=== PATIENT | male | born 1935 | race Caucasian/White ===

== ENCOUNTER 2017-01-29 19:15 | Emergency (ER) | payer MEDICARE, BC ==
[2017-01-29 19:25] VITALS: RESP 18
[2017-01-29] MEDS ORDERED: SODIUM CHLORIDE 0.9% 1,000 ML IV STA (20:00)
[2017-01-29] MEDS ORDERED: ACETAMINOPHEN TAB 500 MG TAB PO STA (20:00)
[2017-01-29] MEDS ORDERED: SODIUM CHLORIDE 0.9% 500 ML IV STA (20:00)
--- NOTE | 2017-01-29 20:03 | ED ---
General Adult HPI - General Source: patient Mode of arrival: ambulatory Limitations: no limitations <Francis Panda - Last Filed: 01/29/17 21:55> <Andrew Roque - Last Filed: 01/29/17 22:50> - General Chief complaint: Arrhythmia/Palpitations Stated complaint: Rapid heart beat Time Seen by Provider: 01/29/17 19:40 - History of Present Illness Initial comments: This 82-year-old white male presents stating that his heart rate has been running approximately 50 for the past couple of days. It then jumped up to a heart rate of 90 this afternoon. This made him somewhat alarmed. He also has had the chills over the past day or 2 but did not have any actual fever. He denies any urinary symptoms. He denies any chest pain, shortness breath, or cough. He states that he has been seeing Dr. Joy from cardiology for the last extremity 8 years for heart arrhythmias. He states that he's had multiple Holter monitors. His heart rate sometimes be bradycardic and sometimes tachycardic. He is unsure of the exact condition that he has. He denies any other complaints or modifying factors. He is essentially asymptomatic at this time. (Francis Panda) - Related Data Home Medications Medication Instructions Recorded Confirmed Aspirin EC [Ecotrin Low Dose] 81 mg PO DAILY 01/29/17 01/29/17 Atorvastatin [Lipitor] 10 mg PO HS 01/29/17 01/29/17 Dorzolamide HCl [Trusopt 2%] 1 drop BOTH EYES BID 01/29/17 01/29/17 Finasteride [Proscar] 5 mg PO QAM 01/29/17 01/29/17 Previous Rx's Medication Instructions Recorded Ciprofloxacin HCl [Cipro] 500 mg PO Q12HR #28 tablet 01/29/17 Allergies Allergy/AdvReac Type Severity Reaction Status Date / Time No Known Allergies Allergy Verified 01/29/17 19:24 Review of Systems ROS Other: All systems not noted in ROS Statement are negative. <Francis Panda - Last Filed: 01/29/17 21:55> ROS Other: All systems not noted in ROS Statement are negative. <Andrew Roque - Last Filed: 01/29/17 22:50> ROS Statement: Those systems with pertinent positive or pertinent negative responses have been documented in the HPI. Past Medical History Additional Past Medical History / Comment(s): aortic anuerysm. enlarged prostate. diverticulitis. glaucoma History of Any Multi-Drug Resistant Organisms: None Reported Past Surgical History: Appendectomy Past Psychological History: No Psychological Hx Reported Smoking Status: Former smoker Past Alcohol Use History: None Reported Past Drug Use History: None Reported <Francis Panda - Last Filed: 01/29/17 21:55> General Exam Limitations: no limitations <Francis Panda - Last Filed: 01/29/17 21:55> <Andrew Roque - Last Filed: 01/29/17 22:50> - General Exam Comments Initial Comments: GENERAL: The patient is well nourished and well hydrated. Patient does have a fever. VITAL SIGNS: Heart rate, blood pressure, respiratory rate reviewed as recorded in nurse's notes. EYES: Pupils are round and reactive. Extraocular movements are intact. No conjunctival / lid redness or swelling. ENT: No external evidence of injury, swelling, or ecchymosis. Airway is patent. Throat is clear. NECK: Nontender. No swelling or evidence of injury. No subcutaneous emphysema. Trachea is midline. No thyroid mass. HEART: Regular rate and rhythm. Good peripheral pulses. LUNGS/CHEST: Breath sounds clear and equal bilaterally. No rales, rhonchi, or wheezes. No ecchymosis, subcutaneous emphysema, or tenderness. ABDOMEN: Abdomen soft without tenderness. No palpable masses or organomegaly. No peritoneal signs. No abdominal wall swelling or ecchymosis. EXTREMITIES: No extremity tenderness. Normal muscle tone and function. No thoracolumbar tenderness. NEUROLOGIC: Sensation is grossly intact. Cranial nerve exam reveals face is symmetrical, tongue is midline, speech is clear. SKIN: No abrasions or ecchymosis is noted. No induration or masses noted. PSYCHIATRIC: Alert and oriented. Appropriate behavior and judgment. (Francis Panda) Medical Decision Making - Lab Data Result diagrams: 01/29/17 19:35 01/29/17 19:35 <Francis Panda - Last Filed: 01/29/17 21:55> - Lab Data Result diagrams: 01/29/17 19:35 01/29/17 19:35 <Andrew Roque - Last Filed: 01/29/17 22:50> - Medical Decision Making The patient was seen and examined. All diagnostics were reviewed. The EKG shows a normal sinus rhythm at a rate of 79. There is no acute ST-T wave changes noted. Patient will PAC is noted. The IL interval is 184, QRS duration is 82, and the QTc interval is 431. Further care will be passed off to oncoming physician. (Francis Panda) - Lab Data Lab Results 01/29/17 01/29/17 01/29/17 Range/Units 19:35 19:35 19:35 WBC 12.0 H (3.8-10.6) k/uL RBC 4.73 (4.30-5.90) m/uL Hgb 15.0 (13.0-17.5) gm/dL Hct 44.5 (39.0-53.0) % MCV 94.1 (80.0-100.0) fL MCH 31.8 (25.0-35.0) pg MCHC 33.8 (31.0-37.0) g/dL RDW 13.3 (11.5-15.5) % Plt Count 162 (150-450) k/uL Neutrophils % 81 % Lymphocytes % 10 % Monocytes % 7 % Eosinophils % 1 % Basophils % 0 % Neutrophils # 9.7 H (1.3-7.7) k/uL Lymphocytes # 1.2 (1.0-4.8) k/uL Monocytes # 0.8 (0-1.0) k/uL Eosinophils # 0.1 (0-0.7) k/uL Basophils # 0.0 (0-0.2) k/uL PT (9.0-12.0) sec INR (<1.2) APTT (22.0-30.0) sec Sodium 141 (137-145) mmol/L Potassium 4.0 (3.5-5.1) mmol/L Chloride 108 H (98-107) mmol/L Carbon Dioxide 24 (22-30) mmol/L Anion Gap 9 mmol/L BUN 16 (9-20) mg/dL Creatinine 0.96 (0.66-1.25) mg/dL Est GFR (MDRD) Af Amer >60 (>60 ml/min/1.73 sqM) Est GFR (MDRD) Non-Af >60 (>60 ml/min/1.73 sqM) Glucose 96 (74-99) mg/dL Plasma Lactic Acid Jarrett (0.7-2.0) mmol/L Calcium 9.2 (8.4-10.2) mg/dL Total Bilirubin 0.8 (0.2-1.3) mg/dL AST 25 (17-59) U/L ALT 37 (21-72) U/L Alkaline Phosphatase 58 (38-126) U/L Total Creatine Kinase 56 (55-170) U/L CK-MB (CK-2) 0.8 (0.0-2.4) ng/mL CK-MB (CK-2) Rel Index 1.4 Troponin I <0.012 (0.000-0.034) ng/mL Total Protein 6.6 (6.3-8.2) g/dL Albumin 4.0 (3.5-5.0) g/dL Urine Color Urine Appearance (Clear) Urine pH (5.0-8.0) Ur Specific [place] (1.001-1.035) Urine Protein (Negative) Urine Glucose (UA) (Negative) Urine Ketones (Negative) Urine Blood (Negative) Urine Nitrite (Negative) Urine Bilirubin (Negative) Urine Urobilinogen (<2.0) mg/dL Ur Leukocyte Esterase (Negative) Urine RBC (0-5) /hpf Urine WBC (0-5) /hpf Ur Squamous Epith Cells (0-4) /hpf Urine Bacteria (None) /hpf Urine Mucus (None) /hpf 01/29/17 01/29/17 01/29/17 Range/Units 19:35 21:35 21:36 WBC (3.8-10.6) k/uL RBC (4.30-5.90) m/uL Hgb (13.0-17.5) gm/dL Hct (39.0-53.0) % MCV (80.0-100.0) fL MCH (25.0-35.0) pg MCHC (31.0-37.0) g/dL RDW (11.5-15.5) % Plt Count (150-450) k/uL Neutrophils % % Lymphocytes % % Monocytes % % Eosinophils % % Basophils % % Neutrophils # (1.3-7.7) k/uL Lymphocytes # (1.0-4.8) k/uL Monocytes # (0-1.0) k/uL Eosinophils # (0-0.7) k/uL Basophils # (0-0.2) k/uL PT 10.8 (9.0-12.0) sec INR 1.1 (<1.2) APTT 21.4 L (22.0-30.0) sec Sodium (137-145) mmol/L Potassium (3.5-5.1) mmol/L Chloride (98-107) mmol/L Carbon Dioxide (22-30) mmol/L Anion Gap mmol/L BUN (9-20) mg/dL Creatinine (0.66-1.25) mg/dL Est GFR (MDRD) Af Amer (>60 ml/min/1.73 sqM) Est GFR (MDRD) Non-Af (>60 ml/min/1.73 sqM) Glucose (74-99) mg/dL Plasma Lactic Acid Jarrett 1.4 (0.7-2.0) mmol/L Calcium (8.4-10.2) mg/dL Total Bilirubin (0.2-1.3) mg/dL AST (17-59) U/L ALT (21-72) U/L Alkaline Phosphatase (38-126) U/L Total Creatine Kinase (55-170) U/L CK-MB (CK-2) (0.0-2.4) ng/mL CK-MB (CK-2) Rel Index Troponin I (0.000-0.034) ng/mL Total Protein (6.3-8.2) g/dL Albumin (3.5-5.0) g/dL Urine Color Yellow Urine Appearance Cloudy (Clear) Urine pH 6.0 (5.0-8.0) Ur Specific [place] 1.015 (1.001-1.035) Urine Protein Negative (Negative) Urine Glucose (UA) Negative (Negative) Urine Ketones Negative (Negative) Urine Blood Trace H (Negative) Urine Nitrite Positive (Negative) Urine Bilirubin Negative (Negative) Urine Urobilinogen <2.0 (<2.0) mg/dL Ur Leukocyte Esterase Large H (Negative) Urine RBC 3 (0-5) /hpf Urine WBC 62 H (0-5) /hpf Ur Squamous Epith Cells <1 (0-4) /hpf Urine Bacteria Rare H (None) /hpf Urine Mucus Rare H (None) /hpf Disposition <Francis Panda - Last Filed: 01/29/17 21:55> <Andrew Roque - Last Filed: 01/29/17 22:50> Clinical Impression: Urinary tract infection Disposition: HOME SELF-CARE Condition: Fair Instructions: Urinary Tract Infection in Men (ED) Prescriptions: Ciprofloxacin HCl [Cipro] 500 mg PO Q12HR #28 tablet Referrals: Jacob Thakkar MD [Primary Care Provider] - 1-2 days
[2017-01-29 20:32] LABS: Basophils % (A) 0 %; CHCM 33.1; Eosinophils # (A) 0.1 k/uL (0-0.7); Eosinophils % (A) 1 %; HCT 44.5 % (39.0-53.0); HDW 2.25; Luc # (Auto) 0.18; Luc % (Auto) 2; Lymphocytes # (A) 1.2 k/uL (1.0-4.8); Lymphocytes % (A) 10 %; MCH 31.8 pg (25.0-35.0); MCHC 33.8 g/dL (31.0-37.0); MCV 94.1 fL (80.0-100.0); Mean Platelet Volume 7.6; Monocytes # (A) 0.8 k/uL (0-1.0); Monocytes % (A) 7 %; Neutrophils # (A) 9.7 k/uL (1.3-7.7); Neutrophils % (A) 81 %; RBC 4.73 m/uL (4.30-5.90); RDW 13.3 % (11.5-15.5); WBC (Perox) 12.49
[2017-01-29] MEDS ORDERED: ACETAMINOPHEN ORAL SUSP 160 MG/5 ML CUP PO ONE (20:33)
[2017-01-29 20:35] LABS: ALT 37 U/L (21-72); AST 25 U/L (17-59); Alkaline Phosphatase 58 U/L (38-126); Anion Gap 9 mmol/L; Blood Urea Nitrogen 16 mg/dL (9-20); Calcium 9.2 mg/dL (8.4-10.2); Carbon Dioxide 24 mmol/L (22-30); Chloride 108 mmol/L (98-107); Glucose 96 mg/dL (74-99); Non-African American GFR(MDRD) >60 (>60 ml/min/1.73 sqM); Sodium 141 mmol/L (137-145); Total Bilirubin 0.8 mg/dL (0.2-1.3); Total Protein 6.6 g/dL (6.3-8.2)
[2017-01-29 20:40] LABS: INR 1.1 (<1.2); Partial Thromboplastin Time 21.4 sec (22.0-30.0); Prothrombin Time 10.8 sec (9.0-12.0)
[2017-01-29 20:41] LABS: Creatine Kinase 56 U/L (55-170)
--- NOTE | 2017-01-29 20:47 | XR ---
EXAMINATION TYPE: XR chest 2V DATE OF EXAM: 01/29/2017 COMPARISON: NONE HISTORY: Weakness TECHNIQUE: Frontal and lateral views of the chest are obtained. FINDINGS: Heart is normal. Lungs are clear of consolidation. There are no hilar masses. There is no pleural effusion. There are chest leads. Thoracic aorta shows mild atheromatous change. Bony thorax i s intact. IMPRESSION: No active cardiopulmonary disease. Normal heart.
[2017-01-29 20:54] LABS: Creatine Kinase MB 0.8 ng/mL (0.0-2.4); Troponin I <0.012 ng/mL (0.000-0.034)
[2017-01-29 21:53] LABS: Appearance,Urine Cloudy (Clear); Bacteria,Urine Rare /hpf; Bilirubin,Urine Negative (Negative); Glucose,Urine (UA) Negative (Negative); Ketones,Urine Negative (Negative); Leukocyte Esterase,Urine Large (Negative); Mucus,Urine Rare /hpf; Nitrite,Urine Positive (Negative); Particle Count 68672; Protein,Urine Negative (Negative); RBC,Urine 3 /hpf (0-5); Specific Gravity,Urine 1.015 (1.001-1.035); Squamous Epithelial Cell,Urine <1 /hpf (0-4); UA Billing (MACRO vs. MICRO) MICRO; Urobilinogen,Urine <2.0 mg/dL (<2.0); WBC,Urine 62 /hpf (0-5)
[2017-01-29 22:38] VITALS: BP 117/55; PULSE 52
[2017-01-29 22:44] VITALS: TEMP 97.4
[2017-01-29] MEDS ORDERED: LEVOFLOXACIN 750 MG TAB PO STA (22:47)
== END 2017-01-29 23:11 | disposition home or self-care (01) ==
LOC: EC 19:15
DX: N39.0 Urinary tract infection, site not specified (principal); I49.1 Atrial premature depolarization; N40.0 Benign prostatic hyperplasia without lower urinary tract symptoms; Z87.891 Personal history of nicotine dependence; Z79.82 Long term (current) use of aspirin; Z79.899 Other long term (current) drug therapy; Z87.39 Personal history of other diseases of the musculoskeletal system and connective tissue; Z86.69 Personal history of other diseases of the nervous system and sense organs
CPT/HCPCS: 36415; 71020; 80053; 81001; 82550; 82553; 83605; 84484; 85025; 85610; 85730; 87040; 87077; 87086; 87186; 93005; 96360; 96361; 99285

== ENCOUNTER → 2021-10-21 | Outpatient (CLI) | payer MEDICARE, BC ==
--- NOTE | 2021-10-21 21:03 | CT ---
EXAMINATION TYPE: CT abdomen wo/w con DATE OF EXAM: 10/21/2021 COMPARISON: None available HISTORY: renal mass CT DLP: 478.8 mGycm Automated exposure control for dose reduction was used. TECHNIQUE: Helical acquisition of images was performed from the lung bases through the top of iliac crest to include entire abdomen. CONTRAST: Performed with Oral Contrast and without and with IV Contrast, patient injected with 80cc mL of Isovu e 300. FINDINGS: LUNG BASES: Unremarkable. LIVER/GB: Few left hepatic hypodensities, likely representing hepatic cysts, some of them are too sma ll to characterize. Further MRI assessment can be considered. Nondistended gallbladder. PANCREAS: Slightly atrophic. SPLEEN: Tiny splenic calcifications. ADRENALS: Diffusely thickened adrenals, nonspecific. KIDNEYS: Centrally necrotic peripherally enhancing lesion is seen at the mid to lower pole of the lef t kidney measuring 6 x 7 x 5.6 cm. It is mainly centered over the central portion of the kidney with the left renal collecting system splayed over the lesion without evidence of obstruction. A large cys t is seen at the upper pole of the left kidney without gross suspicious feature measuring up to 9.5 c m. Apparently patent left renal vessels. Slightly complex cyst with internal septation seen at the lo wer pole of the right kidney. Unremarkable right kidney otherwise. BOWEL: Unremarkable stomach and duodenum. Suboptimal assessment of the small and large bowel due to paucity of intra-abdominal fat. No evidence of bowel obstruction. Suspected colonic diverticulosis. LYMPH NODES: No definite pathologically enlarged abdominal lymph nodes. OSSEOUS STRUCTURES: Diffuse osteopenia with subtle lucencies scattered throughout the bones probably related to osteopenia. Recommend correlation with bone scan results to rule out subtle underlying me tastatic lesions. FREE AIR: No free air is visualized. OTHER: Previous aortobiiliac bypass grafts. Arterial atherosclerotic calcifications. No sizable free abdominal fluid. IMPRESSION: Centrally necrotic marginally enhancing left renal mass as described above. This is suspicious for a malignant process like renal cell carcinoma however other benign neoplasms or chronic abscess can't b e totally excluded. Recommend clinical correlation, correlation with urinalysis results and urology c onsultation. Further PET scan assessment can be considered. Complex cyst at the lower pole of right k idney and other incidental findings as described above.
--- NOTE | 2021-10-21 21:14 | CT ---
EXAMINATION TYPE: CT chest w con DATE OF EXAM: 10/21/2021 COMPARISON: No previous CT scan is available for comparison HISTORY: renal mass, unknown origin CT DLP: 132.6 mGycm Automated exposure control for dose reduction was used. TECHNIQUE: CT scan of the chest is performed with IV Contrast, patient injected with 80cc mL of Isovue 300. FINDINGS: LUNGS: 3 mm calcified granuloma along the transverse fissure. Scattered linear pulmonary atelectasis. Grossly unremarkable lungs otherwise. Patent trachea and main bronchi. No pleural effusion. MEDIASTINUM: No gross cardiomegaly. Coronary and arterial atherosclerotic calcifications. The ascendi ng aorta measures 3.8 cm. Scattered subcentimeter hilar and mediastinal lymph nodes, nonspecific. No pathologically enlarged lymph nodes in the chest. Minimal pericardial fluid. OTHER: CT scan of the abdomen is dictated separately. Diffuse osteopenia. Degenerative changes of th e lower cervical spine. IMPRESSION: No definite suspicious lesion or metastatic disease seen in the chest. Incidental findings as describ ed above.
== END | disposition home or self-care (01) ==
LOC: RADCTMAIN 13:59
PROVIDERS: ATTEND Urology
DX: N28.89 Other specified disorders of kidney and ureter (principal)
CPT/HCPCS: 82565; 84520; 71260; 74170; 36415; Q9967

== ENCOUNTER → 2022-05-28 | Outpatient (CLI) | payer MEDICARE, BC ==
--- NOTE | 2022-05-28 16:03 | XR ---
EXAMINATION TYPE: XR chest 2V DATE OF EXAM: 05/28/2022 COMPARISON: 01/29/2017 INDICATION: Renal mass TECHNIQUE: Frontal and lateral views of the chest are obtained. FINDINGS: The heart size is normal. The pulmonary vasculature is normal. The lungs are clear. There is some increased AP diameter. Consider good inspiratory effort and emphy sematous change. IMPRESSION: 1. No acute pulmonary process. 2. Hyperinflation, Consider some emphysematous change.
[2022-05-29 00:59] LABS: Basophils # (A) 0.04 X 10*3/uL (0.00-0.10); Basophils % (A) 0.6 %; Eosinophils # (A) 0.09 X 10*3/uL (0.04-0.35); Eosinophils % (A) 1.4 %; HCT 46.3 % (39.6-50.0); HGB 15.2 g/dL (13.0-17.0); Immature Grans, Automated 0.3 %; Lymphocytes # (A) 1.19 X 10*3/uL (0.90-5.00); Lymphocytes % (A) 18.5 %; MCH 31.7 pg (27.0-32.0); MCHC 32.8 g/dL (32.0-37.0); MCV 96.5 fL (80.0-97.0); Mean Platelet Volume 9.9 fL (9.5-12.2); Monocytes # (A) 0.59 X 10*3/uL (0.20-1.00); Monocytes % (A) 9.2 %; NRBC Per 100 WBC 0 /100 WBCS (0.0-0.0); Neutrophils # (A) 4.49 X 10*3/uL (1.80-7.70); Platelet Count 192 X 10*3/uL (140-440); RDW 13.9 % (11.5-14.5); WBC 6.42 X 10*3/uL (4.50-10.00)
[2022-05-29 01:26] LABS: African American GFR (CKD) 69.6 (60.0-200.0); Anion Gap 8.5 mmol/L (10.00-18.00); Blood Urea Nitrogen 17.6 mg/dL (9.0-27.0); Carbon Dioxide 26.5 mmol/L (20.0-27.5); Potassium 4.3 mmol/L (3.5-5.5)
== END | disposition home or self-care (01) ==
LOC: RADXRMAIN 14:18
PROVIDERS: ATTEND Urology
DX: D41.02 Neoplasm of uncertain behavior of left kidney (principal); J43.9 Emphysema, unspecified
CPT/HCPCS: 36415; 71046; 80048; 85025

== ENCOUNTER 2022-06-06 08:21 | Inpatient (IN) | payer MEDICARE, BC ==
--- NOTE | 2022-06-05 16:41 | P.GSHP ---
History of Present Illness H&P Date: 06/05/22 Chief Complaint: Left renal mass Patient is a 86-year-old male diagnosed with a left renal mass suspicious for malignancy. No history of hematuria. Does have history of BPH is on finasteride for the same. Medical history significant for an aortic aneurysm and COPD. He has received cardiac as well as pulmonary clearance ROS: 14 point data was performed pertinent positives noted. Past Medical History Past Medical History: Hyperlipidemia, Prostate Disorder Additional Past Medical History / Comment(s): aortic anuerysm had stent placed 5 yrs ago monitored by Dr Grady, hx of chest discomfort no meds. enlarged prostate. hx ulcer. dx with kidney cancer 8 months ago. arthritis in knees. Hx diverticulitis. glaucoma History of Any Multi-Drug Resistant Organisms: None Reported Past Surgical History: Appendectomy Additional Past Surgical History / Comment(s): colonscopies. Past Anesthesia/Blood Transfusion Reactions: No Reported Reaction Additional Past Anesthesia/Blood Transfusion Reaction / Comment(s): no blood transfusions Smoking Status: Current every day smoker - Past Family History Father Family Medical History: Cancer Additional Family Medical History / Comment(s): liver cancer. drinker Mother Family Medical History: Coronary Artery Disease (CAD) Medications and Allergies Home Medications Medication Instructions Recorded Confirmed Type Aspirin EC [Ecotrin Low Dose] 81 mg PO Q48H 01/29/17 06/02/22 History Dorzolamide HCl [Trusopt 2%] 1 drop BOTH EYES BID 01/29/17 06/02/22 History Finasteride [Proscar] 5 mg PO QAM 01/29/17 06/02/22 History Multiple Vitamin With [place] 3 2 tab PO DAILY 06/02/22 06/02/22 History Tamsulosin HCl [Flomax] 0.4 mg PO AC-LUNCH 06/02/22 06/02/22 History Allergies Allergy/AdvReac Type Severity Reaction Status Date / Time No Known Allergies Allergy Verified 06/02/22 15:26 General Adult HPI - General Mode of arrival: ambulatory Limitations: no limitations - Related Data Home Medications Medication Instructions Recorded Confirmed Aspirin EC [Ecotrin Low Dose] 81 mg PO Q48H 01/29/17 06/02/22 Dorzolamide HCl [Trusopt 2%] 1 drop BOTH EYES BID 01/29/17 06/02/22 Finasteride [Proscar] 5 mg PO QAM 01/29/17 06/02/22 Multiple Vitamin With [place] 3 2 tab PO DAILY 06/02/22 06/02/22 Tamsulosin HCl [Flomax] 0.4 mg PO AC-LUNCH 06/02/22 06/02/22 Allergies Allergy/AdvReac Type Severity Reaction Status Date / Time No Known Allergies Allergy Verified 06/02/22 15:26
[~2022-06-06 08:21] MED LIST: DEXAMETHASONE SOD PHOSPHATE 4 MG/ML 1 ML VIAL IV ONE; HYDROmorphone 0.5 MG/0.5 ML SYRINGE IVP PRN; LIDOCAINE 1% (10MG/ML) FOR IV START INTRADERMA PRN; MIDAZOLAM 2 MG/2 ML VIAL IV PRN; ONDANSETRON 4 MG/2 ML VIAL IVP ONE
[2022-06-06] MEDS: LACTATED RINGERS 1,000 ML IV SCH (08:49)
[2022-06-06] MEDS ORDERED: MIDAZOLAM 2 MG/2 ML VIAL IVP ONE (09:36)
[2022-06-06] MEDS ORDERED: fentaNYL (PF) 50 MCG/1 ML VIAL IVP ONE (09:36)
--- NOTE | 2022-06-06 09:55 | P.ANPRN ---
Procedure Note - Anesthesia - Nerve Block Performed Bilateral Erector Spinae Single Time Out Performed: Yes ([id number]) Date of Procedure: 06/06/22 Procedure Start Time: 09:36 Procedure Stop Time: 09:41 Location of Patient: PreOp Indication: Acute Post-Operative Pain, Requested by Surgeon Specifically requested for management of pain by : Sudarshan Hunt Sedation Type: Sedate with meaningful contact maintained Preparation: Sterile Prep Position: Sitting Catheter: None Needle Types: Pajunk Needle Gauge: 21 Ultrasound used to visualize needle placement: Yes Ultrasound used to observe medication spread: Yes Injectate: 0.5% Ropivacaine (see comment for volume) (15cc + 15cc nacl pf) Blood Aspirated: No Pain Paresthesia on Injection Noted: No Resistance on Injection: Normal Image Stored and Saved: Yes Events: Uneventful and Well Tolerated
[2022-06-06] MEDS ORDERED: PROPOFOL 10 MG/ML 20 ML VIAL IV ONE (10:08)
[2022-06-06] MEDS ORDERED: LIDOCAINE 1% (10MG/ML) FOR IV START ONE (10:08)
[2022-06-06] MEDS ORDERED: ROPIVACAINE 5 MG/ML 30 ML VIAL ONE (10:08)
[2022-06-06] MEDS ORDERED: SODIUM CHLORIDE 0.9% (PF) 10 ML VIAL ONE (10:08)
[2022-06-06] MEDS ORDERED: ePHEDrine 50 MG/ML 1 ML VIAL ONE (10:08)
[2022-06-06] MEDS ORDERED: GLYCOPYRROLATE 0.2 MG/ML 2 ML VIAL ONE (10:08)
[2022-06-06] MEDS ORDERED: ROCURONIUM 10 MG/ML (5 ML VIAL) IV ONE (10:08)
[2022-06-06] MEDS ORDERED: WATER FOR INJECTION, STERILE 10 ML VIAL IV ONE (10:08)
[2022-06-06] MEDS ORDERED: PHENYLEPHRINE-0.9% NACL SYG 1,000 MCG/10 ML SYRINGE ONE (10:08)
[2022-06-06] MEDS ORDERED: NEOSTIGMINE 1 MG/ML 10 ML VIAL ONE (10:08)
[2022-06-06] MEDS ORDERED: SUCCINYLCHOLINE CHLORIDE 200 MG/10 ML VIAL IV ONE (10:08)
[2022-06-06] MEDS ORDERED: fentaNYL (PF) 50 MCG/ML 2 ML AMP ONE (10:08)
[2022-06-06] MEDS ORDERED: ONDANSETRON 4 MG/2 ML VIAL IVP PRN (10:24)
[2022-06-06] MEDS ORDERED: HYDROmorphone 1 MG/ML 1 ML SYRINGE IVP PRN (10:24)
[2022-06-06] MEDS ORDERED: ACETAMINOPHEN TAB 325 MG TAB PO PRN (10:24)
[2022-06-06] MEDS ORDERED: BUPIVACAINE (PF) 0.5% 30 ML VIAL SQ ONE ×2 (11:39→11:47)
--- NOTE | 2022-06-06 11:49 | P.OP ---
Date of Procedure: 06/06/22 Preoperative Diagnosis: Left renal mass Postoperative Diagnosis: Left renal mass Procedure(s) Performed: Robotic left radical nephrectomy Implants: None Anesthesia: OTIS Surgeon: Sudarshan Hunt Estimated Blood Loss (ml): 50 IV fluids (ml): 500 Urine output (ml): 100 Pathology: other (Left kidney and ureter) Condition: stable Disposition: PACU Indications for Procedure: Large central left renal mass measuring 6 cm with central necrosis suspicious for malignancy Operative Findings: Large upper pole renal cyst. An large central mass was seen. No hilar lymph nodes appreciated. Description of Procedure: The patient was diagnosed with a 6 cm left renal mass. He also had a 9 cm left upper pole renal cyst. Elected to undergo a robotic left radical nephrectomy. Procedure risks and competitions were explained including risk of bleeding and bowel injury splenic injury and vascular injury. Patient was taken to the OR and administered endotracheal general anesthesia. Barkley catheter was placed. he was placed in left lateral position. Arms shoulder and pressure points Parts were well padded. Arms were placed by the side of the patient and tucked in. The patient was secured to the table with 3 separate tapes. A timeout was performed confirming the patient's name and with the identifiers and side to be operated. A Veress needle was placed in the midclavicular line and pneumoperitoneum was insufflated to 20 mmHg thereafter decreased to 15. 48 mm ports were placed in the midclavicular line as robotic ports. A 12 mm port was placed in the midline and some umbilically as the investigative assistant port. The robot was docked. Inspection of the abdomen was performed. An incision was made along the line of Toldt and the descending colon and sigmoid colon were reflected off the generators fascia. The psoas muscle was then identified. The ureter was identified coursing over the psoas muscle. This was lifted up with the fenestrated bipolar and held up with a progressed. The plane posterior to the ureter over the source was then developed all the way until the posterior wall of the kidney. Attention was then directed to the splenic flexure which was incised and reflected medially. Incision was carried superiorly over the generators and the spleen was completely reflected medially. Attention was then again directed towards the psoas muscle and the ureter along with the gonadal's were reflected off the psoas. This reflection was carried superiorly until the renal vein and renal artery were identified. The dissection was then continued as superior to the renal vein. The adrenal was identified and reflected medially. The large renal cyst was then identified at the upper pole. An incision was made in the renal cyst and all the fluid was evacuated. The dissection above the renal hilum was then progressively deepened to the level of the psoas and the entire renal hilum was then isolated. The renal hilum was controlled with a Endo JUJU stapler 60 mm vascular load. Hemostasis was confirmed. The upper pole of the kidney was then dissected off the generators with fenestrated bipolar and monopolar scissors taking care to achieve meticulous hemostasis. Dissection was then carried inferiorly lateral to the kidney and tail the pelvic brim. The ureter and gonadal vessels were identified and controlled within an Endo JUJU stapler. Specimen was then placed into a 15 mm Endo Catch bag. Inspection of the spleen hilum as well as the upper pole generators was meticulously done to rule out any bleeding. All bleeding points were coagulated. I had the robot was then de-docked. 12 mm port was extended inferiorly and the Endo Catch bag was extracted specimen sent for pathology. The fascia was closed with continuous 0 Vicryl on a CT1 needle. Skin was closed with 4-0 Monocryl. The patient tolerated the procedure well and was taken to recovery with a Barkley catheter in stable condition
[2022-06-06] MEDS: TAMSULOSIN 0.4 MG CAP.ER.24H PO SCH (13:45)
[2022-06-06] MEDS: DEXTROSE 5%-0.45% NACL 1,000 ML IV SCH ×2 (13:45→20:43)
[2022-06-06] MEDS: KETOROLAC 15 MG/ML 1 ML VIAL IVP PRN (18:42)
[2022-06-06] MEDS: DORZOLAMIDE HCL 2% DROPS 10 ML BTL BOTH EYES SCH (23:29)
[2022-06-07] MEDS: KETOROLAC 15 MG/ML 1 ML VIAL IVP PRN ×3 (00:08→14:02)
[2022-06-07] MEDS: DEXTROSE 5%-0.45% NACL 1,000 ML IV SCH ×3 (00:09→20:58)
[2022-06-07] MEDS: LACTATED RINGERS 1,000 ML IV SCH (04:53)
[2022-06-07] MEDS: MULTIVITAMINS, THERA 1 EACH TAB PO SCH (07:34)
[2022-06-07] MEDS: FINASTERIDE 5 MG TAB PO SCH (07:34)
[2022-06-07] MEDS: DORZOLAMIDE HCL 2% DROPS 10 ML BTL BOTH EYES SCH ×2 (07:34→20:57)
--- NOTE | 2022-06-07 08:26 | P.PN ---
Subjective Progress Note Date: 06/07/22 The patient is in his first day from a robotic-assisted laparoscopic left nephrectomy. The surgery was uneventful. He has done very well postoperatively. His pain is minimal. His urine output is good. His vital signs are stable. His abdomen is soft. The patient is tolerating liquids. I will increase his diet and ambulate the patient. I will leave his catheter till tomorrow. If he does well today, pain under control, can ambulate then we will remove the catheter and probably discharge him home tomorrow. Objective - Vital Signs Vital signs: Vital Signs Temp 97.7 F 06/07/22 07:55 Pulse 50 L 06/07/22 07:55 Resp 12 06/07/22 07:55 BP 106/47 06/07/22 07:55 Pulse Ox 98 06/07/22 07:55 FiO2 Intake & Output 06/06/22 06/07/22 06/07/22 18:59 06:59 18:59 Intake Total 2150 1350 Output Total 510 450 Balance 1640 900 Weight 49.4 kg Intake: IV 2150 Intake, IV Titration 1250 Amount Dextrose 5%-0.45% NaCl 1, 1200 000 ml @ 100 mls/hr IV . Q10H TIFFANIE Rx#:[id number] ceFAZolin 1,000 mg In 50 Sodium Chloride 0.9% 50 ml @ 100 mls/hr IVPB Q8H TIFFANIE Rx#:[id number] Oral 100 Output: Urine 510 450 Uretheral (Barkley) 150 Other: Voiding Method Indwelling Catheter Indwelling Catheter Indwelling Catheter
[2022-06-07 09:06] LABS: ALT 18 U/L (4-49); AST 25 U/L (17-59); African American GFR (CKD) 55 (>60 ml/min/1.73 sqM); Albumin 2.8 g/dL (3.5-5.0); Albumin/Globulin Ratio 1.2; Alkaline Phosphatase 47 U/L (38-126); Anion Gap 2 mmol/L; Blood Urea Nitrogen 20 mg/dL (9-20); Calcium 7.7 mg/dL (8.4-10.2); Carbon Dioxide 28 mmol/L (22-30); Chloride 106 mmol/L (98-107); Globulin 2.3 g/dL; Glucose 120 mg/dL (74-99); Non-African American GFR(CKD) 48 (>60 ml/min/1.73 sqM); Potassium 4.1 mmol/L (3.5-5.1); Sodium 136 mmol/L (137-145); Total Bilirubin 0.7 mg/dL (0.2-1.3); Total Protein 5.1 g/dL (6.3-8.2)
[2022-06-07] MEDS: TAMSULOSIN 0.4 MG CAP.ER.24H PO SCH (11:46)
[2022-06-07 11:52] VITALS: BMI 17.0
[2022-06-08 02:26] VITALS: BP 101/48; RESP 16
[2022-06-08] MEDS: DEXTROSE 5%-0.45% NACL 1,000 ML IV SCH (06:45)
[2022-06-08] MEDS: LACTATED RINGERS 1,000 ML IV SCH (06:45)
[2022-06-08 08:42] VITALS: PULSE 52; TEMP 99.1
[2022-06-08] MEDS: MULTIVITAMINS, THERA 1 EACH TAB PO SCH (09:27)
[2022-06-08] MEDS: DORZOLAMIDE HCL 2% DROPS 10 ML BTL BOTH EYES SCH (09:27)
[2022-06-08] MEDS: FINASTERIDE 5 MG TAB PO SCH (09:27)
--- NOTE | 2022-06-08 10:50 | P.DS ---
Providers Date of admission: 06/06/22 08:21 Attending physician: Sudarshan Hunt Primary care physician: Stated None Hospital Course: The patient underwent a robotic-assisted laparoscopic left radical nephrectomy by on 06/06/22. He has done very well. He is tolerated his diet. He is ambulated. His urine is clear. His abdomen is soft. His vital signs are stable. I will discontinue his Barkley. If he urinates he can go home without a catheter. If he doesn't urinate we'll reinsert the catheter and have him go home with a catheter. He is stable to go home and would like to do so. His condition is good. He has chewable Tylenol at home for pain. Patient Condition at Discharge: Good Plan - Discharge Summary Discharge Rx Participant: No New Discharge Prescriptions: No Action Finasteride [Proscar] 5 mg PO QAM Dorzolamide HCl [Trusopt 2%] 1 drop BOTH EYES BID Aspirin EC [Ecotrin Low Dose] 81 mg PO Q48H Tamsulosin HCl [Flomax] 0.4 mg PO AC-LUNCH Multiple Vitamin With [place] 3 2 tab PO DAILY Discharge Medication List Aspirin EC [Ecotrin Low Dose] 81 mg PO Q48H 01/29/17 [History] Dorzolamide HCl [Trusopt 2%] 1 drop BOTH EYES BID 01/29/17 [History] Finasteride [Proscar] 5 mg PO QAM 01/29/17 [History] Multiple Vitamin With [place] 3 2 tab PO DAILY 06/02/22 [History] Tamsulosin HCl [Flomax] 0.4 mg PO AC-LUNCH 06/02/22 [History] Follow up Appointment(s)/Referral(s): Elio Vega MD [STAFF PHYSICIAN] - 1 Week Discharge Disposition: HOME SELF-CARE
[2022-06-08] MEDS: TAMSULOSIN 0.4 MG CAP.ER.24H PO SCH (12:07)
== END 2022-06-08 13:28 | disposition home or self-care (01) | DRG 658 ==
LOC: 2ORMAIN 08:21 → 4SSUR 12:49
PROVIDERS: ADMIT Urology; ATTEND Urology
PROC: 8E0W4CZ Robotic Assisted Procedure of Trunk Region, Percutaneous Endoscopic Approach (ICD-10-PCS; principal; 2022-06-06 10:00)
PROC: 0TT14ZZ Resection of Left Kidney, Percutaneous Endoscopic Approach (ICD-10-PCS; principal; 2022-06-06 10:00)
DX: C64.2 Malignant neoplasm of left kidney, except renal pelvis (principal); E78.5 Hyperlipidemia, unspecified; F17.210 Nicotine dependence, cigarettes, uncomplicated; J44.9 Chronic obstructive pulmonary disease, unspecified; N40.0 Benign prostatic hyperplasia without lower urinary tract symptoms; N28.1 Cyst of kidney, acquired; Z80.0 Family history of malignant neoplasm of digestive organs; Z82.49 Family history of ischemic heart disease and other diseases of the circulatory system; M17.0 Bilateral primary osteoarthritis of knee; H40.9 Unspecified glaucoma; Z86.79 Personal history of other diseases of the circulatory system; Z87.11 Personal history of peptic ulcer disease; Z79.82 Long term (current) use of aspirin; Z79.899 Other long term (current) drug therapy
CPT/HCPCS: 64999; 80053; 86850; 86900; 86901; 88307; 94760

== ENCOUNTER 2022-06-08 22:38 | Emergency (ER) | payer MEDICARE, BC ==
[2022-06-08 22:44] VITALS: RESP 18
--- NOTE | 2022-06-09 | ED ---
General Adult HPI - General Chief complaint: Recheck/Abnormal Lab/Rx Stated complaint: Post-op Difficulty Urinating Time Seen by Provider: 06/08/22 23:51 Source: patient Mode of arrival: ambulatory Limitations: no limitations - History of Present Illness Initial comments: Dictation was produced using [employer] dictation software. please excuse any gra mmatical, word or spelling errors. Chief Complaint: 86-year-old male presents emergency Department with urinary retention History of Present Illness: 86-year-old male was recently hospitalized after having had nephrectomy. Patient's surgery was 2 days ago. He was in the hospital for 2 days. He is discharged earlier today. Patient got home was not able to urinate. Patient also has prostate issues. Patient has no other complaints at this time. Patient is able to get some urine on however does not feel like he is able to drain his bladder fully. The ROS documented in this emergency department record has been reviewed and confirmed by me. Those systems with pertinent positive or negative responses have been documented in the HPI. All other systems are other negative and/or noncontributory. PHYSICAL EXAM: General Impression: Alert and oriented x3, not in acute distress HEENT: Normocephalic atraumatic, extra-ocular movements intact, pupils equal and reactive to light bilaterally, mucous membranes moist. Cardiovascular: Heart regular rate and rhythm Chest: Able to complete full sentences, no retractions, no tachypnea Abdomen: abdomen soft, non-tender, non-distended, no organomegaly, surgical sites clean dry and intact Musculoskeletal: Pulses present and equal in all extremities, no peripheral edema Motor: no focal deficits noted Neurological: CN II-XII grossly intact, no focal motor or sensory deficits noted Skin: Intact with no visualized rashes Psych: Normal affect and mood ED course: 86-year-old male presents emergency department for postoperative urinary retention. Vital signs upon arrival are within acceptable limits. Bladder scan shows greater than 630 mL of urine. Barkley catheter placed. Nursing notes and chart review was performed Barkley catheter was placed with drainage of large amounts of urine. Patient reevaluated bedside at 12:42 AM found to be stable medical condition. Reports significant improvement. Patient be discharged. He has an appointment with urology soon. - Related Data Home Medications Medication Instructions Recorded Confirmed Aspirin EC [Ecotrin Low Dose] 81 mg PO Q48H 01/29/17 06/06/22 Dorzolamide HCl [Trusopt 2%] 1 drop BOTH EYES BID 01/29/17 06/06/22 Finasteride [Proscar] 5 mg PO QAM 01/29/17 06/06/22 Multiple Vitamin With [place] 3 2 tab PO DAILY 06/02/22 06/06/22 Tamsulosin HCl [Flomax] 0.4 mg PO AC-LUNCH 06/02/22 06/06/22 Allergies Allergy/AdvReac Type Severity Reaction Status Date / Time No Known Allergies Allergy Verified 06/08/22 22:44 Review of Systems ROS Statement: Those systems with pertinent positive or pertinent negative responses have been documented in the HPI. ROS Other: All systems not noted in ROS Statement are negative. Past Medical History Past Medical History: Hyperlipidemia, Prostate Disorder Additional Past Medical History / Comment(s): aortic anuerysm had stent placed 5 yrs ago monitored by Dr Grady, hx of chest discomfort no meds. enlarged prostate. hx ulcer. dx with kidney cancer 8 months ago. arthritis in knees. Hx diverticulitis. glaucoma History of Any Multi-Drug Resistant Organisms: None Reported Past Surgical History: Appendectomy Additional Past Surgical History / Comment(s): colonscopies, left nephrectomy 06/06/2022 Past Anesthesia/Blood Transfusion Reactions: No Reported Reaction Additional Past Anesthesia/Blood Transfusion Reaction / Comment(s): no blood transfusions Past Psychological History: Depression Smoking Status: Current every day smoker Past Alcohol Use History: None Reported Past Drug Use History: None Reported - Past Family History Father Family Medical History: Cancer Additional Family Medical History / Comment(s): liver cancer. drinker Mother Family Medical History: Coronary Artery Disease (CAD) General Exam Limitations: no limitations Course Vital Signs 06/08/22 06/09/22 22:39 00:17 Temperature 97.9 F 98.2 F Pulse Rate 81 62 Respiratory 18 18 Rate Blood Pressure 119/73 131/65 O2 Sat by Pulse 95 96 Oximetry Medical Decision Making - Lab Data Lab Results 06/09/22 Range/Units 00:12 Urine Color Light Yellow Urine Appearance Clear (Clear) Urine pH 5.5 (5.0-8.0) Ur Specific [place] 1.005 (1.001-1.035) Urine Protein Negative (Negative) Urine Glucose (UA) Negative (Negative) Urine Ketones Negative (Negative) Urine Blood Moderate H (Negative) Urine Nitrite Negative (Negative) Urine Bilirubin Negative (Negative) Urine Urobilinogen <2.0 (<2.0) mg/dL Ur Leukocyte Esterase Negative (Negative) Urine RBC 6 H (0-5) /hpf Urine WBC 1 (0-5) /hpf Urine Mucus Rare H (None) /hpf Disposition Clinical Impression: Urinary retention Disposition: HOME SELF-CARE Condition: Good Instructions (If sedation given, give patient instructions): Urinary Retention in Men (ED) Is patient prescribed a controlled substance at d/c from ED?: No Referrals: Toro Gonzalez MD [STAFF PHYSICIAN] - 1-2 days Time of Disposition: 00:43
[2022-06-09 00:19] VITALS: BP 131/65; PULSE 62; TEMP 98.2
[2022-06-09 00:33] LABS: Appearance,Urine Clear (Clear); Bilirubin,Urine Negative (Negative); Blood,Urine Moderate (Negative); Color,Urine Light Yellow; Glucose,Urine (UA) Negative (Negative); Ketones,Urine Negative (Negative); Leukocyte Esterase,Urine Negative (Negative); Mucus,Urine Rare /hpf; Nitrite,Urine Negative (Negative); PH, Urine 5.5 (5.0-8.0); Protein,Urine Negative (Negative); RBC,Urine 6 /hpf (0-5); Specific Gravity,Urine 1.005 (1.001-1.035); Urobilinogen,Urine <2.0 mg/dL (<2.0); WBC,Urine 1 /hpf (0-5)
== END 2022-06-09 00:56 | disposition home or self-care (01) ==
LOC: EC 22:38
DX: R33.9 Retention of urine, unspecified (principal); F32.A Depression, unspecified; F17.200 Nicotine dependence, unspecified, uncomplicated
CPT/HCPCS: 51702; 81001; 99283

== ENCOUNTER → 2022-12-24 | Outpatient (CLI) | payer MEDICARE, BC ==
--- NOTE | 2022-12-25 07:50 | XR ---
EXAMINATION TYPE: XR chest 2V DATE OF EXAM: 12/24/2022 4:05 PM COMPARISON: Chest radiographs from 05/28/2022, CT chest 10/21/2021 TECHNIQUE: XR chest 2V Frontal and lateral views of the chest. CLINICAL INDICATION:Male, 86 years old with history of C64.2; FINDINGS: Lungs/Pleura: There is no evidence of pleural effusion, focal consolidation, or pneumothorax. Pulmonary vascularity: Unremarkable. Heart/mediastinum: Cardiomediastinal silhouette is unremarkable. Atherosclerotic calcifications are seen in the aorta. Musculoskeletal: No acute osseous pathology. Mild degenerative disc disease of the thoracic spine. Other: Partial position of abdominal aortic stent graft. IMPRESSION: No acute cardiopulmonary disease/process.
--- NOTE | 2022-12-25 09:38 | CT ---
EXAMINATION TYPE: CT abdomen pelvis wo con DATE OF EXAM: 12/24/2022 COMPARISON: 10/31/2021 HISTORY: left side renal ca CT DLP: 219.0 mGycm Automated exposure control for dose reduction was used. TECHNIQUE: Helical acquisition of images was performed from the lung bases through the pelvis. FINDINGS: Exam limited by lack of oral and IV contrast. LUNG BASES: Diffuse emphysematous changes with basilar bronchiectasis. Subsegmental scarring or atele ctasis bilateral lung bases. Evidence of previous aortic repair surgery. LIVER/GB: No significant abnormality is appreciated. Stable 2.2 cm left hepatic lobe cyst. PANCREAS: No significant abnormality is seen. SPLEEN: Splenic granuloma noted. ADRENALS: Bilateral adrenal thickening may be on the basis of hyperplasia or benign adenoma but stabl e. Finding nonspecific. KIDNEYS: 3 cm simple right renal cyst stable. Previous left approximately change is seen. No abnormal soft tissue mass or attenuation in the left renal bed. FREE AIR: No free air is visualized RETROPERITONEAL ADENOPATHY: None visualized URINARY BLADDER: No significant abnormality is seen. PELVIC ADENOPATHY: None visualized. OSSEOUS STRUCTURES: There is diffuse patchy attenuation throughout the visualized osseous structures . Severe hip arthropathy bilaterally. BOWEL: Diverticulosis of the colon retained debris or early sedation. OTHER: Previous aortic surgery is noted and stable. There is a 5 x 4.5 cm enlargement of the prostate . 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 Bladder limited by incomplete distention. IMPRESSION: 1. Post left nephrectomy with no evidence of recurrent mass or pathologic adenopathy. Stable appearin g simple right renal cyst Bosniak classification I. 2. There remains diffuse heterogeneous pattern of the osseous structures. Recommend bone scan to asse ss for osseous metastases. 3. Prostatomegaly correlate with PSA particularly given the osseous changes.
== END | disposition home or self-care (01) ==
LOC: RADCTMAIN 15:26
PROVIDERS: ATTEND Urology
DX: C64.2 Malignant neoplasm of left kidney, except renal pelvis (principal); N28.1 Cyst of kidney, acquired; N40.0 Benign prostatic hyperplasia without lower urinary tract symptoms; Z90.5 Acquired absence of kidney
CPT/HCPCS: 71046; 74176

== ENCOUNTER → 2023-01-13 | Outpatient (CLI) | payer MEDICARE, BC ==
--- NOTE | 2023-01-13 20:12 | NM ---
EXAMINATION TYPE: NM bone scan whole body DATE OF EXAM: 01/13/2023 COMPARISON: CT 12/24/2022 CLINICAL INDICATION: Male, 87 years old with history of C64.2; TECHNIQUE: Delayed whole-body scanning was performed following the injection of 18.7 mCi Tc 99m MDP. Images acquired 3 hours post injection. FINDINGS: There is degenerative tracer activity at the left greater than right hips. Degenerative tracer activi ty at the right base of the thumb. No tracer activity in the expected location of the left kidney. Possibly related to nephrectomy. Asymmetric accumulation of excreted tracer within the bladder of questionable clinical significance. IMPRESSION: 1. Degenerative tracer activity at the left greater than right hips. Also at the right base of thumb. 2. Absence of activity in the expected region of the left kidney suggesting underlying nephrectomy 3. No scintigraphic evidence for osseous metastatic disease. Consider etiologies for the diffuse hete rogeneous marrow on CT such as severe osteopenia, renal osteodystrophy, and other metabolic or infilt rative processes.
== END | disposition home or self-care (01) ==
LOC: RADNMMAIN 10:14
PROVIDERS: ATTEND Urology
DX: C64.2 Malignant neoplasm of left kidney, except renal pelvis (principal); M16.0 Bilateral primary osteoarthritis of hip
CPT/HCPCS: 78306; A9503

== ENCOUNTER → 2024-01-07 | Outpatient (CLI) | payer MEDICARE, BC ==
--- NOTE | 2024-01-07 15:27 | US ---
EXAMINATION TYPE: US kidneys/renal and bladder DATE OF EXAM: 01/07/2024 COMPARISON: CT 12/24/2022 CLINICAL INDICATION: Male, 88 years old with history of C64.1 KIDNEY CA; Hx left kidney cancer, left nephrectomy EXAM MEASUREMENTS: Right Kidney: 10.9 x 5.3 x 4.9 cm Left Kidney: Surgically absent. Right Kidney: Complex area seen lower pole: 4.2 x 4.6 x 4.1 cm. Left Kidney: Surgically absent. Bladder: *Internal echoes seen within the bladder. Bladder wall appears irregular/jagged. Not fully d istended, limited visibility, patient unable to hold bladder for proper prep. Bilateral Jets seen: No IMPRESSION: Cystic lesion lower pole right kidney seen on prior CT. Left-sided nephrectomy change.
--- NOTE | 2024-01-07 16:06 | XR ---
EXAMINATION TYPE: XR chest 2V DATE OF EXAM: 01/07/2024 3:49 PM CLINICAL INDICATION:Male, 88 years old with history of C64.1 KIDNEY CA; [facility] COMPARISON: Chest radiographs from 12/24/2022 TECHNIQUE: XR chest 2V Frontal view of the chest. FINDINGS: Lungs/Pleura: Similar lucency to the anterior chest on lateral view. There is flattening of the diaph ragm with increased lucency of the lungs. No evidence of pneumothorax, pleural effusion or focal cons olidation. Pulmonary vascularity: Unremarkable. Heart/mediastinum: Cardiomediastinal silhouette is unremarkable. Musculoskeletal: No acute osseous pathology. IMPRESSION: 1. No acute cardiopulmonary disease process. 2. COPD changes.
== END | disposition home or self-care (01) ==
LOC: RADUSWWP 14:37
PROVIDERS: ATTEND Urology
DX: C64.1 Malignant neoplasm of right kidney, except renal pelvis (principal); J44.9 Chronic obstructive pulmonary disease, unspecified; Z90.5 Acquired absence of kidney; Z85.528 Personal history of other malignant neoplasm of kidney
CPT/HCPCS: 71046; 76770